=== PATIENT | female | born 1990 | race Caucasian/White ===

== ENCOUNTER 2016-10-09 23:18 | Emergency (ER) | payer OTHER, MEDICAID ==
[~2016-10-09] VITALS: Ht 170.1 cm; Wt 68.0 kg
[~2016-10-09 23:18] MED LIST: ACETAMINOPHEN-H1 TA2 PO; BACTROBAN OINT22 GM PO; CLINDAMYCIN HC300 MG PO; CORDROL20 MG PO; D3-20002000 UNIT PO; MOTRIN800 MG PO; NAPROSYN500 MG PO; NKHM; PENICILLIN VK500 MG PO; ROBAXIN500 MG PO; TRAMADOL HCL50 MG PO; VICODIN 500 MG-1 TAB PO
[2016-10-09] MEDS ORDERED: NAPROSYN500 MG PO (23:39)
== END 2016-10-10 00:36 | disposition home or self-care (01) ==
LOC: ED 23:18
DX: S60.211A Contusion of right wrist, initial encounter (principal); R03.0 Elevated blood-pressure reading, without diagnosis of hypertension; F17.200 Nicotine dependence, unspecified, uncomplicated; Z91.040 Latex allergy status; Z79.899 Other long term (current) drug therapy; X58.XXXA Exposure to other specified factors, initial encounter; Y93.89 Activity, other specified; Y92.89 Other specified places as the place of occurrence of the external cause; Y99.8 Other external cause status

== ENCOUNTER 2017-02-26 22:02 | Emergency (ER) | payer SELFPAY ==
[~2017-02-26] VITALS: Ht 170.1 cm; Wt 63.5 kg
[2017-02-26 22:30] LABS: BASO # 0.1 10*3/uL (0.0-0.1); BASO % 0.5 % (0.0-1.0); EOS # 0.1 10*3/uL (0.0-0.4); EOS % 1.4 % (1.0-4.0); HEMATOCRIT 41.6 % (37.0-47.0); HEMOGLOBIN 14.3 g/dl (12.0-16.0); LYMPH # 2.7 10*3/uL (1.3-4.4); MEAN CELL VOLUME 91.6 fl (81.0-99.0); MEAN CORPUSCULAR HGB 31.5 pg (27.0-31.0); MEAN CORPUSCULAR HGB CONC 34.4 g/dl (33.0-37.0); MEAN PLATELET VOLUME 11.2 fl (9.6-12.3); MONO # 0.6 10*3/uL (0.1-1.0); MONO % 6.7 % (3.0-9.0); NEUT # 5.8 10*3/uL (2.3-7.9); NEUT % 62.2 % (47.0-73.0); PLATELET COUNT AUTOMATED 287 10*3/uL (130-400); RED BLOOD COUNT 4.54 10*6/uL (4.10-5.10); RED CELL DISTRI WIDTH 12.3 % (0-14.5); WHITE BLOOD COUNT 9.4 10*3/uL (4.8-10.8)
[2017-02-26 22:49] LABS: B-hCG (QUALITATIVE) NEGATIVE (NEGATIVE); BUN 7 mg/dl (7-24); CHLORIDE 104 mmol/L (98-107); CREATININE 0.81 mg/dL (0.55-1.02); SODIUM 140 mmol/L (136-145)
[2017-02-26 22:52] LABS: TROPONIN I < 0.015 ng/ml (<0.045)
[2017-02-26 23:22] LABS: BILIRUBIN NEGATIVE (NEGATIVE); BLOOD NEGATIVE (NEGATIVE); CLARITY CLEAR (CLEAR); COLOR YELLOW (YELLOW); GLUCOSE NEGATIVE (NEGATIVE); KETONE TRACE (NEGATIVE); LEUKO ESTERASE 1+ (NEGATIVE); NITRITE NEGATIVE (NEGATIVE); UROBILINOGEN 0.2 E.U./dl (0.2-1.0)
[2017-02-26 23:30] LABS: EPITHELIAL CELLS 20-25
[2017-02-26 23:33] LABS: BACTERIA TRACE; WBC 21-30 wbc/hpf (0-5)
[2017-02-26] MEDS ORDERED: KETOROLAC10 MG PO (23:53)
[2017-02-26] MEDS ORDERED: AMOXICILLIN500 M2 PO (23:53)
== END 2017-02-27 00:26 | disposition home or self-care (01) ==
LOC: ED 22:02
PROVIDERS: Emergency Medicine Emergency Medical Services
DX: R07.81 Pleurodynia (principal); J01.90 Acute sinusitis, unspecified; J40 Bronchitis, not specified as acute or chronic; F17.200 Nicotine dependence, unspecified, uncomplicated; Z79.899 Other long term (current) drug therapy; Z91.040 Latex allergy status